=== PATIENT | female | born 1960 | race Caucasian/White ===

== ENCOUNTER 2020-02-03 08:44 | Outpatient (REF) | payer OTHER, SELFPAY | END 2020-02-03 08:45 | disposition home or self-care (01) | LOC: HO.LAB 08:44 | PROVIDERS: Visit Provider Internal Medicine | DX: Z20.828 Contact with and (suspected) exposure to other viral communicable diseases (principal) | CPT/HCPCS: C9803; U0003 ==

== ENCOUNTER 2024-08-07 12:32 | Outpatient (AMB) | payer OTHER, SELFPAY ==
--- NOTE | 2024-08-07 12:36 | A.OFFVIS_ITS ---
VS Expanded 08/07/24 12:43 08/21/24 11:32 Height 4 ft 8.3 in 4 ft 8.3 in Weight 217 lb 12.715 oz 217 lb BMI 48.3 48.1 Intake Visit Reasons: obesity Nutrition Presentation Details: Pt presents for MNT for Morbid obesity Pt is accompanied by her mother during this appointment, Pt's mom 88 yo. 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 Pt has cognitive impairment. Pt repeats some information but does not comprehend nutrition discussion. Mom reports concerns of Pt's weight gain, mom also reports own worries of underfeeding Pt since Pt does not ask for food or tells when hungry and therefore mom may offer snacks Per mom Pt has no difficulties chewing swallowing, no diarrhea, no constipation Typical meal ,8am B: 2 scrambled eggs.coffee/milk / sugar diet, or 2 toast /butter, coffee with milk lunch: fruits /or juices sugar free and sandwich sparkling water 4pm: rice/beans/chicken air fryer , salad, olive oil, light juices sparkling water 8-9 pm soda crackers and light juice no recent labs at the time of this appt not on MVI MTO-Ydzgflg-Kc.Jeor Equation Height: 4 ft 8.3 in Weight: 217 lb Resting Metabolic Rate: 1411.02 Calculated Activity Level: Sedentary Calories Needed to Maintain Weight: 1693.22 Diagnosis Nutrition problem #1: overweight/obesity As related to (etiology) #1: physical inactivity (d/t spina bifida with hydrocephalus, paraplegia ) As evidenced by (sign/symptom) #1: high BMI (48.1 as per weight on 04/02/24, PCP office note) Monitoring/Goals Nutrition problem monitoring: total PRO intake and oral fluids Nutrition goal/outcome: wt loss 5lbs in 2 months Learning/Education Readiness to learn: good Stages of change: contemplation Educational materials provided: Yes (1500 reema meal plan for now) [facility] Medical History (Updated 08/21/24 @ 13:21 by Nimo Dueñas, RD, LDN) Low vitamin D level Hyperlipidemia Blindness of left eye Spina bifida of lumbar region with hydrocephalus Cognitive impairment Wheelchair dependence Assessment & Plan Assessment & Plan (1) Morbid obesity with BMI of 45.0-49.9, adult: Code(s): E66.01 - Morbid (severe) obesity due to excess calories; Z68.42 - Body mass index [BMI] 45.0-49.9, adult Category: Medical Plan: Wt: 99 Kg ( 08/27 ) Est kcal needs as per MSJ: 1500 (40% carb, 30% protein/fat) Est fluid needs as per 25-30 ml/d: 3000 Est prot per day as per 1 g/kg bw: 100 Recommend fiber intake : 8-10 g per day and gradually increase to 25-28 g per day for women and 35-38 g for men or as tolerated Recommend sodium intake per day : less than 200 mg Educated patient on: ( R = reviewed V = verbalizes understanding N/R = needs review N/A = not applicable * Food sources of carbohydrate, adequate serving sizes and its role in various health conditions: R V N/R * Differences between complex carbohydrates a simple carbohydrates, role of fiber in diet and adequate portion sizes of starches: R * Lean protein sources of foods: R * Differences between types of fats and role in diet (mono on saturated fat fatty acids, saturated fatty acids, trans fats): R V N/R * Food sources of sodium in salt and healthy modifications for heart health in kidney health: R V R/V * Vitamins and minerals: R V N/R * Healthy plate method concept, portion sizes : R * Relationship of Physical inactivity and increased weight gain : R PCP : Please monitor for nutritional deficiencies: vitamin C, Vitamin D, Vitamin B12, zinc , Mg, thank you Patient Instructions: Povide yogurt and water as snack at bedtime Provide one meal replacement at lunch time and 1 fruit (less than 250 calories and 30 g protein) keep a food record and bring to next follow up see 1500 reema meal plan for now Coding Level of Care Code Nutr Indiv Intake (78239) Diagnoses Morbid obesity with BMI of 45.0-49.9, adult E66.01; Z68.42 Time Spent (min) 30
[2024-08-07 12:43] VITALS: BMI 48.3
--- OUTSIDE RECORDS SUMMARY | 2024-08-07 14:37 | XMS_ITS | Data Portability ---
Author Organization [place] - [facility], [facility] Address [address] [place] [address] Care Team Providers Care Supervisor Word Processing Name Role Phone SANDRA LUCAS Primary Care Provider Assessment No assessment recorded. Plan of Treatment Reminders Order Date Submit Date Provider Last Modified By Organization Details Last Modified Time Details Appointments None recorded. Lab None recorded. Referral None recorded. Procedures None recorded. Surgeries None recorded. Imaging XR, knee, 1 or 2 view - 302 sunrise 2023 024 [facility], [address] [place] [address] [address], [place], [address], 4 15:00:55 Medication Orders compounde d medicatio n 2023 024 [facility], [address] [place] [address], [facility]. [address], [place], [address], 4 10:07:35 Patient TargetsNo targets recorded. Patient InstructionsNo instructions recorded. Reason for Referral None Reported. Results Created Date Observation Date Name Description Value Unit Range Abnormal Flag Note LastModifiedBy Organization Detail LastModifiedTime 10/25/19 24 10/25/2023 XR, knee, 1 or 2 view http:/ [email or web address] ?Encry pted=s hAaTro YD8dLq bEUv6g %2BXZw aYqtaq 0bqfl% 2Fg9IQ a4ajBk vP9nXo QUaueC m3YtLR FvZlgJ JJ8mAn HZtai3 1a2080 AC0Kra HqHUKP eUC8mr 84%3D INTERFACE [facility] [address], [place], [address], 10/25/2023 16:06:56 10/25/19 24 10/25/2023 XR, knee, 1 or 2 view http:/ [email or web address] ?Encry pted=s hAaTro YD8dLq bEUv6g %2BXZw aYqtaq 0bqfl% 2Fg9IQ a4ajBk vP9nXo QUaueC m3YtLR FvZlgJ JJ8mAn HZtai3 7t2192 AC0Kra HqHUKP eUC8mr 84%3D INTERFACE [facility] [address], [place], [address], 10/25/2023 16:06:58 10/26/19 24 09/10/2023 XR, knee, 4 or more view No observ ation record ed. BARCODE Not Available 2023 17:02:46 Result Notes None recorded. Problems Name Problem SNOMED Code Status Onset Date Resolution Date Notes Provider Name and Address Organization Details Recorded Time Pain of left knee joint 0095243985891 07 Active 2023 Tyra Love i, PA-C [address], [place], [address], [facility] 4 15:00:14 Osteoarthri tis of left knee joint 9729141545423 09 Active 2023 Tyra Love i, PA-C [address], [place], [address], [facility] 4 16:26:26 Problem Notes None recorded. Procedures Surgical History Date Name Laterality Status Provider Name and Address Organization Details Recorded Time 03/10/2024 Sports Knee 4&1 completed Tyra Haque PA-C [address], [place], [address], [facility] 03/10/2024 15:21:43 Imaging Results None recorded. Procedure Notes None recorded. Medical Equipment None Reported. Allergies Allergen ID Allergen Name Allergen Category Reaction Reaction Severity Criticality Documentation Date Start Date Code Code System Note Provider Name and Address Organization Details Recorded Time 534008 Advil medicatio n Not available Not available Not available 10/25/2023 97331 0 RxNorm LISEVANITA osullivan [facility] 15:25:01 Medications Name Sig Start Date Stop Date Status Note LastModified by Organization Details LastModified Time compounded medication Apply 1-3 grams(pump s) to the affected area 3-4 times daily 024 active Not Available Not Available Not Avai lable Vitals Date Recorded Body height Body mass index (BMI) Body weight Provider Name and Address Organization Details Last Updated DateTime 03/10/2024 121.92 cm 65.9 kg/m2 17192.95 g Silvia Luis [facility] 03/10/2024 14:42:03 Date Recorded Body weight Body mass index (BMI) Body height Provider Name and Address Organization Details Last Updated DateTime 10/25/2023 02607.95 g 65.9 kg/m2 121.92 cm LISE DEE Bower [facility] 10/25/2023 15:24:46 Social History None recorded. Functional Status Question Answer Note LastModified by Organizat ion Details LastModified Time Do you use any illicit or recreational drugs? No Information not available 10/25/2023 Do you or have you ever used any other forms of tobacco or nicotine? No Information not available 10/25/2023 What is your level of alcohol consumption? None [email or web address] Information not available 10/25/2023 Mental Status None recorded. Family History Nothing Reported. Medical History Condition Response Nerve Disorders Y Arthritis Y Circulation Problems Y Gynecological HistoryNo gynecological history recorded. Obstetrics History GPAL:G 0 P 0 0 0 0 Past Encounters Encounter ID Performer Location Encounter Start Date Encounter Closed Date Diagnosis/Indication Diagnosis SNOMED-CT Code Diagnosis ICD10 Code Diagnosis Note [id number] [facility] [address] [place] [address] 10/25/2023 15:14:33 11/12/2023 15:00:55 Pain of left knee joint 9258624636 56204 M25.562 Osteoarthr itis of left knee joint 2975035320 20419 M17.12 [id number] [facility] [address] [place] [address] 03/10/2024 14:23:58 03/25/2024 10:38:39 Osteoarthritis of left knee joint 1616236987 54834 M17.12 Health Concerns Section Related Observation LastModified by Organization Detai ls LastModified Time None Recorded Concern Status LastModified by Organization Details LastModified Time None Recorded Advance Directives Directive None Recorded Payers Encounter Date Sequence Insurance Name Policy Number Policy Hernandez Covered Member ID Hernandez Member ID Guarantor Name 10/25/2023 1 [facility] - DOS ON OR AFTER 2022 - MEDICARE [place]VANTAGE [place]/ADV ANTAGE - PPO) Jacquelyn I James Jose [id number] Jacquelyn James Jose 03/10/2024 1 [facility] - DOS ON OR AFTER 2022 - [place]V ANTAGE - PPO) Jacquelyn I James Jose [id number] Jacquelyn James Jose Notes Date Note Type Note Provider Name and Address Organization Details Recorded Time 10/25/2023 text/html I am seeing the patient today under the supervision of Dr. Hanson who was available but who did not see the patient. HPI: 63 y.o. female patient presents today for left knee pain. 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 Patient is somewhat verbal, but her lawn caretaker is primary historian. Fruit Preserver reports patient has recently gained a lot of weight, she is unsure why or how as she does not eat a lot. She was transferring at home from her wheelchair just using her feet for balance to pivot, pivoted on her left knee and yelled out in pain. She was evaluated at the [facility] ER, ultrasound negative for DVT, x-rays negative for fractures. 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 Patient is wheelchair bound, she does not ambulate. No treatment so far. Past family, social history and review of systems has been reviewed, updated and is located in the patient? s chart. X-RAYS:2v X-rays of the Left knee were ordered, obtained and reviewed today at [facility] demonstrate bilateral patella ching, moderate medial and patellofemoral compartment space narrowing. IMPRESSION: Left knee osteoarthritisPLAN: Findings reviewed. Discussed conservative treatment options. P4 cream was sent. Discussed follow up in 3 months, if no improvement, will consider cortisone injection. Discussed avoiding surgical intervention is in the patient's best interest given her non-weightbearing, wheel chair bound status. All of their concerns are addressed and they understand and agree with the plan. Speech recognition garnett machine operator helper software was used to create portions of this document. An attempt at proofreading has been made to minimize errors. Please call for corrections. Tyra Alex PA-C [address] [place] [address] [address] [facility], [place], [address], [facility] 10/25/2023 16:27:47 03/10/2024 text/html I am seeing the patient today under the supervision of Dr. Wellington who was available but who did not see the patient. CLINICAL UPDATE: 63 y.o. female patient presents today for left knee recheck. Pain has been improving, however, her caretakers would like her to try a cortisone injection. HPI: Presented 10/25/23 with left knee pain. 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 Patient is somewhat verbal, but her caretakers are primary historian. Fruit Preserver reports patient has recently gained a lot of weight, she is unsure why or how as she does not eat a lot. She was transferring at home from her wheelchair just using her feet for balance to pivot, pivoted on her left knee and yelled out in pain. She was evaluated at the [facility] ER, ultrasound negative for DVT, x-rays negative for fractures. 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 Patient is wheelchair bound, she does not ambulate. No treatment so far. Past family, social history and review of systems has been reviewed, updated and is located in the patient? s chart.X-RAYS:Previo us 2v X-rays of the Left knee reviewed today at [facility] demonstrate bilateral patella ching, moderate medial and patellofemoral compartment space narrowing. IMPRESSION: Left knee osteoarthritis PLAN: Findings reviewed. Discussed conservative treatment options. She has tried PT for cream. Her caretakers elected to proceed with left knee cortisone injection today. Discussed avoiding surgical intervention is in the patient's best interest given her non-weightbearing, wheel chair bound status. Follow-up as symptoms dictate. All of their concerns are addressed and they understand and agree with the plan. Speech recognition garnett machine operator helper software was used to create portions of this document. An attempt at proofreading has been made to minimize errors. Please call for corrections. Tyra Haque PA-C [address] [facility] [address], [place], [address], [place] [facility] 03/10/2024 15:22:09 OBGyn Episode No OBEpisode recorded.
[2024-08-21 11:32] VITALS: BMI 48.1
== END 2024-08-07 14:49 | disposition home or self-care (01) ==
LOC: HO.ENCR 12:33
PROVIDERS: PCP Internal Medicine; Visit Provider Dietitian, Registered
DX: E66.01 Morbid (severe) obesity due to excess calories (principal); Z68.42 Body mass index [BMI] 45.0-49.9, adult

== ENCOUNTER → 2024-08-07 12:32 | Outpatient (BNVA) | payer OTHER, SELFPAY | PROVIDERS: Visit Provider Dietitian, Registered | DX: E66.01 Morbid (severe) obesity due to excess calories (principal); Z71.3 Dietary counseling and surveillance; Z68.42 Body mass index [BMI] 45.0-49.9, adult | CPT/HCPCS: 97802 ==